=== PATIENT | male | born 1950 | race Caucasian/White ===

== ENCOUNTER → 2020-06-06 08:47 | Outpatient (BNVA) | payer BC, SELFPAY | PROVIDERS: PCP Internal Medicine; Referring Provider Internal Medicine; Visit Provider Urology | DX: Z76.89 Persons encountering health services in other specified circumstances (principal) ==

== ENCOUNTER 2020-06-11 06:07 | Outpatient (REF) | payer BC, SELFPAY ==
[2020-06-11 11:50] LABS: Blood Urea Nitrogen 9 mg/dL (9-16); Estimated Glomerular Filt Rate > 60
== END 2020-06-11 06:08 | disposition home or self-care (01) ==
LOC: HO.HMGCLDS 06:07
PROVIDERS: PCP Internal Medicine; Visit Provider Urology
DX: C61 Malignant neoplasm of prostate (principal); N26.1 Atrophy of kidney (terminal)
CPT/HCPCS: 82565; 84520

== ENCOUNTER → 2020-06-18 09:55 | Outpatient (REF) | payer BC, SELFPAY ==
--- NOTE | 2020-06-18 09:59 | NM_ITS ---
EXAMINATION: NM BONE SCAN OF THE WHOLE BODY CLINICAL INFORMATION: Malignant neoplasm of prostate. COMPARISON: No previous bone scan or radiographs are available for comparison. TECHNIQUE: Multiple gamma scintillation camera images of the whole body were performed 3 hours following the intravenous administration of 28 mCi Tc-99m MDP. FINDINGS: In the head, no significant abnormalities are present. In the thoracic cage and upper extremities, there is mildly increased activity in the glenohumeral articulations of both shoulders. There is mildly increased activity in the right acromioclavicular joint and the bilateral sternoclavicular joints, all likely arthritic. In the spine, there is mildly increased activity in the right side of L3 and bilaterally at the L/L5 level. In the pelvis, no significant abnormalities are present. In the lower extremities, a photopenic defect from a right total hip prosthesis is noted with no abnormal activity adjacent to the prosthesis. Minimally increased activity in the right greater femoral trochanter is present, likely due to a mild lymphadenopathy. There are small mild foci of increased activity present in the medial compartments of both knees. There is markedly increased activity in the left ankle. This is predominantly in the talar bone, but additional abnormality in the proximal left foot more proximally that is likely in the anterior calcaneus is noted. There is moderately increased activity in the left first metatarsophalangeal joint and in a small focus in the distal aspect of the fifth digit of the right foot, and there is mildly increased activity in the right talar bone. No other definite bony abnormalities are noted. The urinary bladder and faint visualization of both kidneys are noted. NM/[place] bone scan whole body IMPRESSION: 1. Very prominent abnormality is present in the left ankle. This is predominantly in the talar bone, as described above and these are nonspecific and may be due to recent fracture, aseptic necrosis, or in the proper clinical setting to an inflammatory lesion. Additional mild abnormalities are present in both feet as described above. Follow-up with plain radiographs of both feet and ankles is recommended to better characterize these abnormalities. 2. A few additional mild nonspecific abnormalities are noted as described above and these are all likely arthritic or traumatic in etiology. None of these abnormalities is strongly suspicious for metastatic disease.
== END ==
LOC: HO.NUCMED 09:55
PROVIDERS: PCP Internal Medicine; Visit Provider Urology
DX: C61 Malignant neoplasm of prostate (principal)
CPT/HCPCS: 78306; A9503

== ENCOUNTER → 2020-07-04 11:27 | Outpatient (BNVA) | payer BC, SELFPAY | PROVIDERS: PCP Internal Medicine; Visit Provider Urology | DX: Z13.89 Encounter for screening for other disorder (principal) ==

== ENCOUNTER → 2020-07-17 10:06 | Outpatient (BNVA) | payer BC, SELFPAY | PROVIDERS: PCP Internal Medicine; Referring Provider Internal Medicine; Visit Provider Urology | DX: C61 Malignant neoplasm of prostate (principal); N40.1 Benign prostatic hyperplasia with lower urinary tract symptoms | CPT/HCPCS: J9217 ==

== ENCOUNTER 2020-10-07 06:33 | Outpatient (REF) | payer BC, SELFPAY ==
[2020-10-02 14:19] VITALS: BMI 22.9
[2020-10-07 07:43] VITALS: BP 138/74; PULSE 73; RESP 16; TEMP 36.8; O2SAT 97
[2020-10-07 07:47] VITALS: BMI 22.9
--- NOTE | 2020-10-07 09:36 | PM.OP ---
Brief Operative Note Date of Service: 10/07/20 Pre-op diagnosis: Prostate cancer Post-op diagnosis: same Procedure: Gold seed implantation Implants: Three gold seeds Surgeon: Kaden Barry MD Anesthesia: local Estimated blood loss (mL): 0 Pathology: none sent Condition: stable Disposition: same day
--- NOTE | 2020-10-07 09:36 | MHC.SHP ---
Pre-Procedural Eval Section A The patient is an INPATIENT: No Changes since office visit: No Cold of Flu in the past 2 weeks, No New Medical Problems, No Changes in Medication and No Patient answered all questions The History & Physical has been completed within 30 days and I have reviewed it.: Yes Section B Chief Complaint: prostate ca Allergies: Allergies Allergy/AdvReac Type Severity Reaction Status Date / Time No Known Allergies Allergy Verified 07/17/20 10:16 [No Known Allergies*] Plan Diagnosis/Plan: Unchanged I have reviewed the history and physical and performed a pertinent physical examination on my patient. No changes have occurred unless specified. Gold seed markers prostate
--- NOTE | 2020-10-07 09:37 | W.PM.OPN ---
Operative Note Operative Note Date of Service: 10/07/20 Narrative: PreOperative Diagnosis: Prostate cancer Post Operative Diagnosis: Prostate cancer Procedure: Transrectal ultrasound gold seed marker placement Surgeon: Dr Kaden Barry Anesthesia: Local Indications for procedure: Gold seed markers Procedure: After informed consent was verified the patient was brought to the procedure room and placed in a supine position. Prior prostate biopsy performed Patient placed in modified left side lithotomy position Antibiotics have been confirm Ultrasound probe placed per rectum. Prostate identified. Prostatic nerve block performed with 10 cc of local anesthetic between the base and apex of the prostate Gold seed markers placed 2 on the right and 1 on the left All seen with good outlines Pathology: none Drains: none
[2020-10-07 09:40] VITALS: BP 124/68; PULSE 76; RESP 16; O2SAT 98
== END 2020-10-07 06:34 | disposition home or self-care (01) ==
LOC: HO.MS 06:33
PROVIDERS: PCP Internal Medicine; Visit Provider Urology
DX: C61 Malignant neoplasm of prostate (principal); I10 Essential (primary) hypertension; Z85.828 Personal history of other malignant neoplasm of skin; F17.210 Nicotine dependence, cigarettes, uncomplicated
CPT/HCPCS: 55700; 55876; 76942; A4648

== ENCOUNTER → 2021-01-07 08:24 | Outpatient (BNVA) | payer BC, SELFPAY | PROVIDERS: PCP Internal Medicine; Visit Provider Urology | DX: C61 Malignant neoplasm of prostate (principal); Z20.822 Contact with and (suspected) exposure to COVID-19 | CPT/HCPCS: 96402; J9217 ==

== ENCOUNTER 2021-01-16 06:16 | Outpatient (REF) | payer BC, SELFPAY ==
[2021-01-16 11:45] LABS: MANUAL DIFF FLAG NO
[2021-01-16 12:10] LABS: Basophils Absolute Auto 0.1 X10*3/uL (0.0-0.2); Basophils Percent Auto 0.8 % (0-2); Eosinophils Absolute Auto 0.3 X10*3/uL (0.0-0.4); Eosinophils Percent Auto 5.6 % (0-4); Hematocrit 44.1 % (42-52); Hemoglobin 14.6 g/dl (14.0-18.0); Imm Gran Abs Auto 0.02 X10*3/uL (0.00-0.03); Imm Gran Pct Auto 0.3 % (0.0-0.4); Lymphocytes Absolute Auto 0.9 X10*3/uL (1.2-4.9); Lymphocytes Percent Auto 15.6 % (20-40); Mean Corpuscular HGB Conc 33.1 g/dl (31.0-36.0); Mean Corpuscular Hemoglobin 32.3 pg (27.0-33.0); Mean Corpuscular Volume 97.6 fL (80-98); Mean Platelet Volume 9.6 fL (9.4-12.4); Monocytes Absolute Auto 0.9 X10*3/uL (0.1-1.2); Monocytes Percent Auto 15.8 % (2-11); Neutrophils Absolute Auto 3.6 X10*3/uL (2.0-8.3); Neutrophils Percent Auto 61.9 % (45-73); Platelet Count 310 X10*3/uL (160-400); Red Blood Count 4.52 X10*6/uL (4.60-5.80); White Blood Count 5.9 X10*3/uL (4.8-10.8)
[2021-01-16 12:41] LABS: PSA,Total (Free>4and<10) 0.33 ng/mL (0.00-4.00)
[2021-01-16 12:54] LABS: Alanine Aminotransferase 15 U/L (0-40); Albumin Level 4.1 g/dL (3.5-5.0); Alkaline Phosphatase 62 U/L (39-117); Anion Gap 13 (12-20); Aspartate Amino Transferase 20 U/L (5-37); Bilirubin Total 0.4 mg/dL (0.0-1.0); Blood Urea Nitrogen 10 mg/dL (9-16); Calcium 8.6 mg/dL (8.4-10.2); Carbon Dioxide 26 mmol/L (22-29); Chloride 102 mmol/L (96-108); Cholesterol 167 mg/dL; Estimated Glomerular Filt Rate > 60; Glucose Fasting 94 mg/dL (60-99); HDL Cholesterol 55 mg/dL; LDL Cholesterol Calculated 92 mg/dl; Potassium 5.3 mmol/L (3.3-5.1); Sodium 136 mmol/L (135-145); Total Protein 7.2 g/dL (6.5-8.0); Triglycerides 103 mg/dL
== END 2021-01-16 06:17 | disposition home or self-care (01) ==
LOC: HO.HMGCLDS 06:16
PROVIDERS: PCP Internal Medicine; Visit Provider Internal Medicine
DX: Z00.00 Encounter for general adult medical examination without abnormal findings (principal); Z12.5 Encounter for screening for malignant neoplasm of prostate; E78.5 Hyperlipidemia, unspecified
CPT/HCPCS: 36415; 80053; 80061; 84153; 85025

== ENCOUNTER 2021-04-01 06:03 | Outpatient (REF) | payer BC, SELFPAY ==
[2021-04-01 12:12] LABS: Prostate Specific Antigen 0.16 ng/mL (<0.05-4.0)
[2021-04-02 08:12] LABS: SARS COV2 IgG Negative (Negative)
[2021-04-08 15:45] LABS: Testosterone, Total 10 ng/dL (250-1100)
== END 2021-04-01 06:04 | disposition home or self-care (01) ==
LOC: HO.HMGCLDS 06:03
PROVIDERS: PCP Internal Medicine; Visit Provider Urology
DX: C61 Malignant neoplasm of prostate (principal); Z01.84 Encounter for antibody response examination; Z12.5 Encounter for screening for malignant neoplasm of prostate
CPT/HCPCS: 36415; 84153; 84403; 86769

== ENCOUNTER → 2021-04-09 08:45 | Outpatient (BNVA) | payer BC, SELFPAY | PROVIDERS: Visit Provider Urology ==

== ENCOUNTER 2021-07-01 06:02 | Outpatient (REF) | payer BC, SELFPAY ==
[2021-07-01 12:36] LABS: Prostate Specific Antigen 0.05 ng/mL (<0.05-4.0)
[2021-07-06 02:35] LABS: Testosterone, Total 11 ng/dL (250-1100)
== END 2021-07-01 06:03 | disposition home or self-care (01) ==
LOC: HO.HMGCLDS 06:02
PROVIDERS: PCP Internal Medicine; Visit Provider Urology
DX: C61 Malignant neoplasm of prostate (principal); N13.8 Other obstructive and reflux uropathy; N40.1 Benign prostatic hyperplasia with lower urinary tract symptoms
CPT/HCPCS: 36415; 84153; 84403

== ENCOUNTER → 2021-07-09 11:27 | Outpatient (BNVA) | payer BC, SELFPAY | PROVIDERS: PCP Internal Medicine; Visit Provider Urology ==

== ENCOUNTER 2021-11-04 06:08 | Outpatient (REF) | payer BC, SELFPAY ==
[2021-11-04 12:27] LABS: Prostate Specific Antigen < 0.05 ng/mL (<0.05-4.0)
[2021-11-08 09:00] LABS: Testosterone, Total 15 ng/dL (250-1100)
== END 2021-11-04 06:09 | disposition home or self-care (01) ==
LOC: HO.HMGCLDS 06:08
PROVIDERS: Visit Provider Urology
DX: C61 Malignant neoplasm of prostate (principal)
CPT/HCPCS: 36415; 84153; 84403

== ENCOUNTER → 2021-11-11 11:26 | Outpatient (BNVA) | payer BC, SELFPAY | PROVIDERS: PCP Internal Medicine; Visit Provider Urology | DX: N40.1 Benign prostatic hyperplasia with lower urinary tract symptoms (principal); N13.8 Other obstructive and reflux uropathy; R33.9 Retention of urine, unspecified; C61 Malignant neoplasm of prostate ==

== ENCOUNTER 2022-01-14 06:18 | Outpatient (REF) | payer BC, SELFPAY ==
[2022-01-14 11:11] LABS: MANUAL DIFF FLAG NO
[2022-01-14 11:37] LABS: Basophils Percent Auto 0.7 % (0-2); Eosinophils Absolute Auto 0.3 X10*3/uL (0.0-0.4); Eosinophils Percent Auto 5.4 % (0-4); Hematocrit 38.9 % (42.0-52.0); Hemoglobin 13.1 g/dl (14.0-18.0); Imm Gran Abs Auto 0.03 X10*3/uL (0.00-0.03); Imm Gran Pct Auto 0.5 % (0.0-0.4); Lymphocytes Absolute Auto 0.9 X10*3/uL (1.2-4.9); Lymphocytes Percent Auto 15.3 % (20-40); Mean Corpuscular HGB Conc 33.7 g/dl (31.0-36.0); Mean Corpuscular Hemoglobin 32.4 pg (27.0-33.0); Mean Corpuscular Volume 96.3 fL (80.0-98.0); Mean Platelet Volume 9.8 fL (9.4-12.4); Monocytes Absolute Auto 0.8 X10*3/uL (0.1-1.2); Monocytes Percent Auto 13.1 % (2-11); Neutrophils Absolute Auto 3.8 x10*3/uL (2.0-8.3); Platelet Count 307 X10*3/uL (160-400); Red Blood Count 4.04 X10*6/uL (4.60-5.80); White Blood Count 5.9 X10*3/uL (4.8-10.8)
[2022-01-14 12:09] LABS: Alanine Aminotransferase 11 U/L (0-40); Albumin Level 3.9 g/dL (3.5-5.0); Alkaline Phosphatase 64 U/L (39-117); Anion Gap 12 (12-20); Aspartate Amino Transferase 16 U/L (5-37); Bilirubin Direct 0.2 mg/dL (0.0-0.5); Bilirubin Total 0.3 mg/dL (0.0-1.0); Blood Urea Nitrogen 17 mg/dL (9-16); Carbon Dioxide 24 mmol/L (22-29); Chloride 105 mmol/L (96-108); Cholesterol 157 mg/dL; Estimated Glomerular Filt Rate > 60; Glucose Fasting 86 mg/dL (60-99); HDL Cholesterol 48 mg/dL; LDL Cholesterol Calculated 99 mg/dl; Potassium 4.8 mmol/L (3.3-5.1); Sodium 136 mmol/L (135-145); Triglycerides 52 mg/dL
== END 2022-01-14 06:19 | disposition home or self-care (01) ==
LOC: HO.HMGCLDS 06:18
PROVIDERS: Visit Provider Internal Medicine
DX: R53.83 Other fatigue (principal); E78.5 Hyperlipidemia, unspecified
CPT/HCPCS: 36415; 80051; 80061; 80076; 82565; 82947; 84520; 85025

== ENCOUNTER 2022-03-03 06:09 | Outpatient (REF) | payer BC, SELFPAY ==
[2022-03-03 11:59] LABS: Prostate Specific Antigen 0.13 ng/mL (<0.05-4.0)
[2022-03-09 12:36] LABS: Testosterone, Total 351 ng/dL (250-1100)
== END 2022-03-03 06:10 | disposition home or self-care (01) ==
LOC: HO.HMGCLDS 06:09
PROVIDERS: Visit Provider Urology
DX: Z12.5 Encounter for screening for malignant neoplasm of prostate (principal); C61 Malignant neoplasm of prostate
CPT/HCPCS: 36415; 84153; 84403

== ENCOUNTER 2022-04-24 09:23 | Day surgery (SDC) | payer MEDICARE, BC, SELFPAY ==
[2022-04-17 13:33] VITALS: BMI 23.3
--- NOTE | 2022-04-23 09:21 | HO.ANESPROP2 ---
Documented by User: Rhonda Doll NP 04/23/22 09:22 HPI - Anesthesia Eval Consult details Narrative: 72yo M for Upper Endoscopy and Colonoscopy H/O DI - required glidescope/3 attempts for 2019 hernia repair PMF Active Problems Active Problems: All Active Problems (Updated 03/11/22 @ 10:59 by Kaden Barry MD) Erectile dysfunction after prostate brachytherapy (Acute) Exposure to COVID-19 virus (Acute) Elevated PSA (Acute) BPH loc w urin obs/LUTS (Acute) Prostate cancer (Acute) Past Medical History Medical History Arthritis BPH loc w urin obs/LUTS Cancer H/O cervical fracture HTN (hypertension) Prostate cancer Smoker Surgical History Surgical History History of right hip replacement Hx of prostate biopsy Hx of right inguinal hernia repair History of Problems with Anesthesia: Yes (h/o of DI) Social History Social History Are you a primary child care centre director to a significant other at home: No Do you presently have visiting nurse or other home services: No Patient Tobacco Use Status: Current everyday Tobacco user Tobacco use type: Cigarette Cigarettes Per Day: 5 Years Smoked: 52 Use of substances other than those prescribed or required for medical reasons: Yes Substance Use Type: Marijuana Substance Use Frequency: Weekly Are you DNR?: No Advance Directives: No Advance Directives Information Provided: Yes Meds Allergies Allergy/AdvReac Type Severity Reaction Status Date / Time No Known Allergies Allergy Verified 04/17/22 13:29 [No Known Allergies*] Home Medications Medication Instructions Recorded Confirmed Last Taken Type lisinopril 10 mg tablet 10 mg PO BID 06/06/20 04/17/22 Unknown History oxaprozin 600 mg tablet 600 mg PO BID 06/06/20 04/17/22 Unknown History atenolol 50 mg tablet 50 mg PO DAILY 04/09/21 04/17/22 Unknown History nifedipine 60 mg tablet,extended 60 mg PO DAILY 07/09/21 04/17/22 Unknown History release finasteride 5 mg tablet 1 tab PO DAILY 04/17/22 04/17/22 Unknown History Exam Exam Date and Time: April 23, 2022920 Height,Weight and Vital Signs: Height 5 ft 10 in Weight 73.936 kg Pertinent Lab Results Pertinent Lab Results: Laboratory Tests 01/14/22 01/14/22 06:36 06:36 WBC 5.9 Hgb 13.1 L Hct 38.9 L Plt Count 307 Sodium 136 Potassium 4.8 Chloride 105 Carbon Dioxide 24 BUN 17 H Creatinine 1.16 Assessment and Plan Assessment Anesthesia Assessment: Chart Reviewed Final Anesthetic Review History of Problems with Anesthesia: Yes (h/o of DI) Documented by User: Katrina Payton MD 04/24/22 10:41 PMF Active Problems Active Problems: All Active Problems (Updated 03/11/22 @ 10:59 by Kaden Barry MD) Erectile dysfunction after prostate brachytherapy (Acute) Exposure to COVID-19 virus (Acute) Elevated PSA (Acute) BPH loc w urin obs/LUTS (Acute) Prostate cancer (Acute) ETOH abuse- 6 beers a day. Last 2 days ago Smoker Past Medical History Medical History Arthritis BPH loc w urin obs/LUTS Cancer H/O cervical fracture HTN (hypertension) Prostate cancer Smoker Family History Family history of problems with anesthesia: No Surgical History Surgical History History of right hip replacement Hx of prostate biopsy Hx of right inguinal hernia repair Social History Social History Are you a primary child care centre director to a significant other at home: No Do you presently have visiting nurse or other home services: No Patient Tobacco Use Status: Current everyday Tobacco user Tobacco use type: Cigarette Cigarettes Per Day: 5 Years Smoked: 52 Use of substances other than those prescribed or required for medical reasons: Yes Substance Use Type: Marijuana Substance Use Frequency: Weekly Are you DNR?: No Advance Directives: No Advance Directives Information Provided: Yes Meds Allergies Allergy/AdvReac Type Severity Reaction Status Date / Time No Known Allergies Allergy Verified 04/17/22 13:29 [No Known Allergies*] Home Medications Medication Instructions Recorded Confirmed Last Taken Type lisinopril 10 mg tablet 10 mg PO BID 06/06/20 04/17/22 Unknown History oxaprozin 600 mg tablet 600 mg PO BID 06/06/20 04/17/22 Unknown History atenolol 50 mg tablet 50 mg PO DAILY 04/09/21 04/17/22 Unknown History nifedipine 60 mg tablet,extended 60 mg PO DAILY 07/09/21 04/17/22 Unknown History release finasteride 5 mg tablet 1 tab PO DAILY 04/17/22 04/17/22 Unknown History Exam Height,Weight and Vital Signs: Height 5 ft 10 in Weight 73.936 kg Vital Signs Temp Pulse Resp BP Pulse Ox O2 Del Method 04/24/22 09:43 97.6 F 70 16 149/75 H 98 Room Air Airway Mallampati Class: III (Small chin) TM Dist: >3cm Neck ROM: Full Denture: Upper Loose/Missing/Broken Teeth: Yes (Poor dentition. Broken teeth) Heart: RRR Lungs: CTAB Assessment and Plan Assessment Anesthesia Assessment: Anesthesia Plan Discussed Final Anesthetic Review Family History of Problems with Anesthesia: No NPO: Yes ASA Class: III Final Preanesthetic Review: No Changes in Pt Med Stat, Meds/Allgs Chart Reviewed, Consent Obtained/Reviewed and Anes Risks/Benef Reviewed Patient Risk: Intermediate Procedure Risk: Low Assessment/Block/Sedation in SS: Assess/Block/Sedation-SS Anesthetic Plan Anesthetic Plan: MAC: Disposition: Standard PACU
[2022-04-24 09:43] VITALS: BP 149/75; PULSE 70; RESP 16; TEMP 36.4; O2SAT 98
[2022-04-24] MEDS: Lactated Ringers 1,000 ML 100 ML IVCONT (09:54)
--- NOTE | 2022-04-24 10:33 | MHC.SHP ---
Pre-Procedural Eval Section A Date of Service: 04/24/22 Section B Chief Complaint: anemia,fecal abnormalities Details of Present Illness: see h&p no changes Relevant Family History (Specify if Yes): No Relevant Social History: None Present Medications: see Short Stay Collaborative assessment Medical History: No relevant PMH History of Previous Operations: No relevant previous surgery Allergies: Allergies Allergy/AdvReac Type Severity Reaction Status Date / Time No Known Allergies Allergy Verified 04/17/22 13:29 [No Known Allergies*] Review of Systems Sugical H&P ROS: Negative: Constitution, Cardiovascular, Respiratory, Neurological, Psychiatric, Hem-Onc, Allergic/Immunologic, Gastrointestinal, Genitourinary, Musculoskeletal, Integumentary, Endocrine and Eyes/Ears/Nose/Throat Exam Surgical H&P Exam: Normal: HEENT, Normal: Heart, Normal: Lungs, Normal: Extremities, Normal: Abdomen, Normal: Skin and Normal: Neurological Plan I have reviewed the history and physical and performed a pertinent physical examination on my patient. No changes have occurred unless specified.
[2022-04-24 11:32] VITALS: BP 87/52; PULSE 66; RESP 18; TEMP 36.3; O2SAT 97
--- NOTE | 2022-04-24 11:36 | P.BOP_ITS ---
Brief Operative Note Date of Service: 04/24/22 Pre-op diagnosis: heme pos stool, anemia Post-op diagnosis: same (duodenitis,colon polyps) Procedure: egd,colon Surgeon: Dimitri Cohen Anesthesia: MAC Was an Instrument Maintenance Supervisor used for this Procedure?: No Estimated blood loss (mL): 5 Pathology: other Condition: stable Disposition: PACU
[2022-04-24 11:47] VITALS: BP 131/80; PULSE 72; RESP 18; TEMP 36.6; O2SAT 98
[2022-04-24 11:55] VITALS: BP 131/80; PULSE 76; RESP 16; TEMP 36.2; O2SAT 98
--- NOTE | 2022-04-25 00:40 | OP_ITS ---
SURGEON: Dimitri Cohen MD INDICATIONS: Anemia and Hemoccult-positive stools. PREOPERATIVE DIAGNOSIS: POSTOPERATIVE DIAGNOSIS: PROCEDURE PERFORMED: ESTIMATED BLOOD LOSS: COMPLICATIONS: ANESTHESIA: ASSISTANTS: SPECIMENS: PROCEDURE: Upper endoscopy with biopsy, colonoscopy to the terminal ileum with snare polypectomy and biopsy on 04/25/22. MEDICATIONS: Monitored anesthesia care. DESCRIPTION OF PROCEDURE: History and Physical performed. The risks and benefits of the procedure were explained to the patient. Informed consent was obtained. The patient was placed in the left lateral decubitus position. The Olympus video gastroscope was introduced into the esophagus, stomach, and duodenum. Examination was performed. The scope was removed. He was repositioned for colonoscopy. Digital rectal exam was performed and was found to be normal. The Olympus pediatric video colonoscope was introduced into the rectum and advanced to the cecum without difficulty. The cecum was identified by transillumination, palpation, and identification of ileocecal valve. Examination was performed. The scope was removed. He tolerated both procedures well and was returned to recovery area in stable condition. FINDINGS: Upper endoscopy: Esophagus: There was some mild esophagitis at the EG junction. 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 Biopsies were obtained from the EG junction. Stomach: Stomach showed linear streaks of erythema, suspicious for gastritis. Biopsies were obtained from the antrum. Duodenum: In the duodenum, there were multiple small erosions consistent with erosive duodenitis. No ulcer was seen. No bleeding was seen. Biopsies were obtained from the second portion of the duodenum. Colonoscopy: The terminal ileum showed a single diverticulum with no bleeding. In the cecum, there was a 1.5 x 2.0 polypoid area involving the appendiceal orifice. This was biopsied. The area was not amenable to snare resection, because of its location at the appendix. The visualized colonic mucosa was within normal limits at 60 cm were 2 less than 10 mm polyps, which were removed with a snare and recovered via suction. In the rectum were multiple telangiectasia consistent with radiation change from prostate radiation therapy. Biopsies were obtained from the rectum. There was moderate diverticulosis involving the sigmoid. The sigmoid was somewhat tortuous. Retroflexed examination showed small internal hemorrhoids. IMPRESSION: 1. Duodenitis. 2. Colon polyps. RECOMMENDATIONS: 1. Follow up biopsy results. 2. Begin omeprazole 20 mg daily for a total of 8 weeks. MD JARROD Duenas/CHAPIN / [id number] DAMARI
== END 2022-04-24 12:03 | disposition home or self-care (01) ==
PROVIDERS: Visit Provider Internal Medicine Gastroenterology
PROC: (CPT 45385; principal; 2022-04-24 10:40)
DX: R19.5 Other fecal abnormalities (principal); D64.9 Anemia, unspecified; D12.0 Benign neoplasm of cecum; D12.4 Benign neoplasm of descending colon; K57.30 Diverticulosis of large intestine without perforation or abscess without bleeding; K64.8 Other hemorrhoids; C61 Malignant neoplasm of prostate; K62.7 Radiation proctitis; K29.70 Gastritis, unspecified, without bleeding; K29.80 Duodenitis without bleeding; K20.80 Other esophagitis without bleeding; I10 Essential (primary) hypertension; Z79.899 Other long term (current) drug therapy; F17.210 Nicotine dependence, cigarettes, uncomplicated; F12.90 Cannabis use, unspecified, uncomplicated
CPT/HCPCS: 45385; 45380; 43239; 88305; 88342; J2370; J3010

== ENCOUNTER 2022-06-30 06:00 | Outpatient (REF) | payer MEDICARE, BC, SELFPAY ==
[2022-06-30 12:14] LABS: Prostate Specific Antigen 0.19 ng/mL (<0.05-4.0)
== END 2022-06-30 06:01 | disposition home or self-care (01) ==
LOC: HO.HMGCLDS 06:00
PROVIDERS: PCP Internal Medicine; Visit Provider Urology
DX: Z12.5 Encounter for screening for malignant neoplasm of prostate (principal); C61 Malignant neoplasm of prostate
CPT/HCPCS: 36415; 84153

== ENCOUNTER 2022-09-18 07:27 | Inpatient (IN) | payer MEDICARE, BC, SELFPAY ==
--- NOTE | 2022-09-03 | ECG_ITS ---
Test Reason : preop Blood Pressure : / mmHG Vent. Rate : 075 BPM Atrial Rate : 075 BPM P-R Int : 150 ms QRS Dur : 082 ms QT Int : 390 ms P-R-T Axes : 063 068 055 degrees QTc Int : 435 ms Normal sinus rhythm Normal ECG No previous ECGs available Referred By: Rhonda Doll Electronically Signed By:JACEK PALAFOX MD
[2022-09-03 11:52] VITALS: BP 168/86; PULSE 83; RESP 20; O2SAT 96; BMI 22.9
[2022-09-03 13:20] LABS: Hemoglobin 14.5 g/dl (14.0-18.0); Mean Corpuscular HGB Conc 33.7 g/dl (31.0-36.0); Mean Corpuscular Hemoglobin 31.5 pg (27.0-33.0); Mean Corpuscular Volume 93.5 fL (80.0-98.0); Mean Platelet Volume 9.4 fL (9.4-12.4); Platelet Count 343 X10*3/uL (160-400); Red Cell Distribution Width 13.5 % (11.0-16.0); White Blood Count 8.9 X10*3/uL (4.8-10.8)
[2022-09-03 13:42] LABS: Anion Gap 13 (12-20); Blood Urea Nitrogen 12 mg/dL (9-16); Calcium 8.7 mg/dL (8.4-10.2); Carbon Dioxide 25 mmol/L (22-29); Chloride 102 mmol/L (96-108); Creatinine Clr Calc Pharmacy 75.8; Estimated Glomerular Filt Rate > 60; Glucose Random 100 mg/dL (60-115); Potassium 4.6 mmol/L (3.3-5.1); Sodium 135 mmol/L (135-145)
[2022-09-18] VITALS (22 sets, daily range): BP systolic 134–178; BP diastolic 70–97; PULSE 67–98; RESP 12–18; TEMP 36.5–37.6; O2SAT 96–100
--- NOTE | 2022-09-18 07:25 | P.CONAN_ITS ---
[facility] Active Problems Active Problems: All Active Problems (Updated 09/03/22 @ 11:54 by Carol Bacon RN) Elevated PSA (Acute) Exposure to COVID-19 virus (Acute) Erectile dysfunction after prostate brachytherapy (Acute) Cecal polyp (Acute) BPH loc w urin obs/LUTS (Acute) Prostate cancer (Acute) Past Medical History Medical History Arthritis BPH loc w urin obs/LUTS Cecal polyp H/O cervical fracture History of COVID-19 HTN (hypertension) Prostate cancer Skin cancer Smoker Functional capacity: independent ambulation Family History Family history of problems with anesthesia: No Surgical History Surgical History H/O colonoscopy History of esophagogastroduodenoscopy (EGD) History of right hip replacement Hx of eye surgery Hx of left inguinal hernia repair Hx of prostate biopsy Hx of right inguinal hernia repair Hx of tonsillectomy History of Problems with Anesthesia: Yes (h/o of DI) Social History Social History Are you a primary career placement specialist to a significant other at home: No Do you presently have visiting nurse or other home services: No Patient Tobacco Use Status: Current everyday Tobacco user Tobacco use type: Cigarette Cigarettes Per Day: 6 Years Smoked: 20 Smoked in Last 30 Days: Yes Patient Interested in Nicotine Replacement: No Patient Given Instructions on How to Stop Smoking: Yes Date Education Initiated: 09/03/22 Second Hand Smoke Exposure: No Use of substances other than those prescribed or required for medical reasons: Yes Substance Use Type: Marijuana Substance Use Frequency: Daily Have you been hit, kicked, punched, or otherwise hurt by someone within the past year? If so, by whom?: No Are you DNR?: No Advance Directives Information Provided: Yes (brochure given) Advance Directives on File: No Recently lost weight without trying: No Eating poorly because of decreased appetite: No Nutrition Risks: No Nutritional Risk Poor oral hygiene: No (upper & lower chipped/broken teeth) Meds Allergies Allergy/AdvReac Type Severity Reaction Status Date / Time No Known Allergies Allergy Verified 09/18/22 08:28 [No Known Allergies*] Home Medications Medication Instructions Recorded Confirmed Last Taken Type lisinopril 10 mg tablet 10 mg PO BID 06/06/20 09/03/22 Unknown History oxaprozin 600 mg tablet 600 mg PO BEDTIME 06/06/20 09/03/22 Unknown History atenolol 50 mg tablet 50 mg PO QAM 04/09/21 09/03/22 09/18/22 History nifedipine 60 mg tablet,extended 60 mg PO QAM 07/09/21 09/03/22 09/18/22 History release Exam Exam Date and Time: September 18, 2022 0725 Height,Weight and Vital Signs: Height 5 ft 10 in Weight 72.575 kg Last Vital Signs Pulse 83 09/03/22 11:52 Resp 20 09/03/22 11:52 BP 168/86 H 09/03/22 11:52 Pulse Ox 96 09/03/22 11:52 O2 Del Method 09/03/22 11:52 Pertinent Lab Results Pertinent Lab Results: Laboratory Tests 09/03/22 09/03/22 09/03/22 12:40 12:44 12:44 WBC 8.9 RBC 4.60 Hgb 14.5 Hct 43.0 MCV 93.5 MCH 31.5 MCHC 33.7 RDW 13.5 Plt Count 343 MPV 9.4 Absolute Nucleated RBC 0.000 Nucleated RBC % (auto) 0.0 Sodium 135 Potassium 4.6 Chloride 102 Carbon Dioxide 25 Anion Gap 13 BUN 12 Creatinine 0.93 Estim Creat Clear Calc 75.8 Estimated GFR > 60 Random Glucose 100 Calcium 8.7 Blood Type A Positive Antibody Screen NEGATIVE Airway Mallampati Class: II TM Dist: >3cm Neck ROM: Full Heart: RRR Lungs: CTA Assessment and Plan Final Anesthetic Review Family History of Problems with Anesthesia: No History of Problems with Anesthesia: Yes (h/o of DI) NPO: Yes ASA Class: II Final Preanesthetic Review: Meds/Allgs Chart Reviewed and Consent Obtained/Reviewed Patient Risk: Intermediate Procedure Risk: Low Anesthetic Plan Anesthetic Plan: GA Disposition: Standard PACU
[2022-09-18] MEDS: Lactated Ringers 1,000 ML 50 ML IVCONT (07:54)
[2022-09-18 08:02] LABS: COVID-19 Test Negative (Negative); IDNOW Serial# BCCEAD1C
--- NOTE | 2022-09-18 08:25 | MHC.SHP ---
Pre-Procedural Eval Section A Date of Service: 09/18/22 Section B Chief Complaint: Cecal Polyp Details of Present Illness: Has cecal polyp, tubular adenoma on biopsy at the appendiceal orifice, could not be resected by the integrated marketing specialist endoscopically Relevant Family History (Specify if Yes): No Relevant Social History: None Present Medications: see Short Stay Collaborative assessment Medical History: Significant History (BPH, history of prostate cancer) Allergies: Allergies Allergy/AdvReac Type Severity Reaction Status Date / Time No Known Allergies Allergy Verified 08/03/22 09:20 [No Known Allergies*] Review of Systems Sugical H&P ROS: Negative: Constitution, Cardiovascular, Respiratory, Neurological, Psychiatric, Hem-Onc, Allergic/Immunologic, Gastrointestinal, Genitourinary, Musculoskeletal, Integumentary, Endocrine and Eyes/Ears/Nose/Throat Exam Surgical H&P Exam: Normal: HEENT, Normal: Heart, Normal: Lungs, Normal: Extremities, Normal: Abdomen, Normal: Skin and Normal: Neurological Plan Diagnosis/Plan: Unchanged I have reviewed the history and physical and performed a pertinent physical examination on my patient. No changes have occurred unless specified. Time Spent With Patient Time: Total time managing care of this patient today ____ minutes.
--- NOTE | 2022-09-18 08:26 | PC.NURSE ---
2 Iv attempts by author. insertion of IV by lissy cervantes rn
--- NOTE | 2022-09-18 08:29 | PHA.MEDREC ---
Pharmacy Consult ? Medication Reconciliation RN has completed the medication reconciliation, pharmacy reviewed
--- NOTE | 2022-09-18 10:44 | W.PM.OPN ---
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 Because of leak a vargas, the client sales and service officer had felt that this could not be resected endoscopically. He was therefore referred to me for resection. He understood the technique of right colon resection. He was aware of the risks, benefits, and alternatives. He was brought to the operating room. He was placed supine under general anesthesia via endotracheal tube. A Molina catheter was inserted. The abdomen was prepped and draped in the usual sterile fashion. A surgical time-out was done. The patient received Cefotan 2 g IV preoperatively I made a short 6.5 cm incision in the midline at level of the umbilicus using blade 15 and this was carried down through the full-thickness of the skin and subcutaneous fat. The fascia was incised. The peritoneum was then entered. I lengthened the fascial incision to optimize the skin incision. I positioned the Chintan wound retractor and attached the GelPort. We insufflated through a port in the GelPort to a pressure of 15 mm hg. I placed the 10 mm 30 degree scope through this port. With laparoscopic visualization I inserted a 5/12 mm port in the epigastric area near the xiphoid. I removed the insufflating port from the GelPort and placed the mass through epigastric port. I placed another 5 mm port in the left upper quadrant. The patient was placed in a head down and [id number] position. With laparoscopic visualization through the epigastric port, I proceeded to reflect the bowel loops away from the right side. This allowed us to visualize the cecum and right colon well. I mobilized the right colon starting from the cecum by dividing all the ligamentous attachments using the LigaSure. This was done along the white line of Toldt. I mobilized the hepatic flexure by dividing the hepatocolic ligamentous attachments. The patient was placed in head up position while doing this. I then completed mobilization of the cecum by dividing the rest of the ligamentous attachments along the terminal ileum and the appendix. Once I felt adequate mobilization of the right colon been achieved, I removed the GelPort. I brought out the distal ileum, the right colon through the small incision. I could not feel the polyp itself. I then proceeded to choose my point of dissection in the terminal ileum as well as the right colon near the hepatic flexure. I created a mesenteric window about 10 cm from the ileocecal valve. I divided this distal ileum with a HARLEY 60 stapler through this defect. I chose my point of transection as well in the hepatic flexure. Again I created a mesenteric defect on this area and a GI 60 mm stapler to transect this. I then used the LigaSure to divide the attached mesentery. I proceeded with division of the mesentery from proximal and distal in and alternating fashion until I reached the ileocolic pedicle. I thinned out the the ileocolic pedicle to define this. I was able to separate the ileocolic vessels. I clamped these individually. I divided these between clamps using scissors and 2-0 doubly ligated using Dexon 2-0 ties. The specimen was then sent for immediate gross exam with the pathologist. I then repaired to do the anastomosis. I lined up both the proximal and distal stumps. I excise the apex of each staple line. Once the anti mesenteric border of each stump were aligned, I inserted each arm of the HARLEY 60 mm stapler. I locked this in place. I made sure that there were no bowel loops or mesentery trapped between the staplers and this was fired. I completed the anastomosis by closing the enterotomy using a TA 60 mm stapler. I reinforced the side to side anastomotic staple line with seromuscular Dexon 3-0 interrupted sutures. There was barely any mesenteric defect remaining the transected mesentery so I did not place any sutures on this. I read the small bowel starting from this area all the way to the ligament of Treitz and there were no pathology or injury seen. I examined the anastomosis. This appeared nonischemic and well vascularized and without tension. There was no evidence of any leak and the entire anastomosis appeared intact. There was note of a little bleeder from 1 area of the staple line which I controlled with a [id number] Dexon 3-0 stitch. Once hemostasis was confirmed, I proceeded to then irrigate this area little bit. I replaced all the bowel loops back into the peritoneal cavity. There was no twisting seen. I positioned the omentum inferiorly. I closed the fascia with a running Maxon 1 stitch. I was able to laparoscopically inspecte the fascial closure and this appeared well closed without any bowel caught. Final laparoscopic examination of the peritoneum the done did not reveal any bleeding nor any bowel injury. I desufflated the port sites. I removed all ports. Skin closure was then done with skin susana. All incisions were infiltrated with Marcaine 0.5% for postop HARLEY. The procedure was then completed The patient tolerated procedure well. There were no immediate complications. Initial and final counts of sponges and instruments were correct. Estimated blood loss was about 25 cc. The patient was extubated without difficulty and transferred to the recovery room with stable vital signs. I received a call from the coding technician at the end of the procedure confirming the presence of an adenomatous lesion in the appendiceal orifice.
[2022-09-18] MEDS: fentaNYL citrate/PF 100 MCG/2 ML VIAL 25 MCG IVPUSH ×2 (11:10→11:29)
[2022-09-18] MEDS: Acetaminophen 1,000 MG/100 ML PIGGYBACK 400 MG IV ×3 (11:12→23:20)
[2022-09-18] MEDS: HYDROmorphone HCl 0.5 MG/0.5 ML SYRINGE 0.25 MG IVPUSH (12:30)
--- NOTE | 2022-09-18 14:20 | PM.EVENT ---
Event Note Date of Service: 09/18/22 Event Note: Seen postop Underwent right colon resection for an adenoma on the appendiceal orifice Seems to have adequate pain control Abdomen soft Stable vital signs Good urine output On clear liquids Pain management Clinically doing well postop Time Spent With Patient Time: Total time managing care of this patient today ____ minutes.
[2022-09-18] MEDS: atenoloL 50 MG TABLET PO (14:30)
[2022-09-18] MEDS: Lactated Ringers 1,000 ML 80 ML IVCONT (14:31)
[2022-09-18] MEDS: 0.9 % Sodium Chloride Flush 3 ML SYRINGE IVFLUSH (14:38)
[2022-09-18] MEDS: NIFEdipine ER 60 MG TAB.ER.24 PO (16:22)
[2022-09-18] MEDS: lisinopriL 10 MG TABLET PO (20:06)
[2022-09-18] MEDS: Morphine Sulfate 4 MG/ML CARTRIDGE IVPUSH (20:06)
[2022-09-19 02:02] VITALS: BP 191/96; PULSE 85; RESP 18; TEMP 36.6; O2SAT 97
[2022-09-19] MEDS: Morphine Sulfate 4 MG/ML CARTRIDGE IVPUSH ×3 (02:14→22:55)
[2022-09-19] MEDS: Lactated Ringers 1,000 ML 80 ML IVCONT ×2 (02:17→14:20)
[2022-09-19] MEDS: Acetaminophen 1,000 MG/100 ML PIGGYBACK 400 MG IV ×4 (05:38→22:51)
[2022-09-19] MEDS: ondansetron HCL 4 MG/2 ML VIAL IVPUSH ×2 (05:43→20:38)
[2022-09-19 08:00] VITALS: BP 187/98; PULSE 81; RESP 18; TEMP 37; O2SAT 97
--- NOTE | 2022-09-19 10:08 | P.PNGS_ITS ---
Subjective Subjective Date of Service: 09/19/22 Patient reports: feels better, still having pain and no flatus Interval history: The patient is seen in coverage for Dr. Hill. The patient is postop day 1 from right hemicolectomy for a large polyp of the cecum. Path is currently pending Patient denies any flatus, vomiting but did receive some anti nausea medicine. He is interested in getting out of bed to chair or walking. He is anxious to have his Molina catheter removed. He otherwise denies chest pain, difficulty breathing, severe shortness of breath or localizing neurologic symptoms Physical Exam 2 Vital Signs: Vital Signs: Last Vital Signs Temp 98.6 F 09/19/22 08:00 Pulse 81 09/19/22 08:00 Resp 18 09/19/22 08:00 BP 187/98 H 09/19/22 08:00 Pulse Ox 97 09/19/22 08:00 O2 Del Method 09/19/22 08:00 O2 Flow Rate 2 09/19/22 02:02 BMI result Body Mass Index 22.9 On exam he is nontoxic Sclera anicteric He is in no respiratory distress Abdomen is a little bloated but his dressings are clean dry and intact. Appropriate incisional tenderness is present with no peritoneal sign Objective Data Active Medications Atenolol (Atenolol 50 Mg Tablet) 50 mg PO DAILY [facility]; Protocol Last Admin: 09/18/22 14:30 Dose: 50 mg Documented By: LORI Fentanyl (Fentanyl Citrate/Pf 100 Mcg/2 Ml Vial) 25 mcg IVPUSH Q5M PRN; Protocol PRN Reason: Pain, Moderate (Pain Scale 4-6 Last Admin: 09/18/22 11:29 Dose: 25 mcg Documented By: ROBYN Heparin Sodium (Porcine) (Heparin Sodium,Porcine 5,000 Unit/Ml Vial) 5,000 unit SUBCUT Q8H [facility], [facility]1983 Hydromorphone HCl (Hydromorphone Hcl 0.5 Mg/0.5 Ml Syringe) 0.25 mg IVPUSH Q5M PRN; Protocol PRN Reason: Pain, Severe (Pain Scale 7-10) Last Admin: 09/18/22 12:30 Dose: 0.25 mg Documented By: ROBYN Lactated Ringer's (Lr) 1,000 mls @ 80 mls/hr IVCONT .[id number] [facility], [facility] Last Admin: 09/19/22 02:17 Dose: 80 mls/hr Documented By: DARRON Acetaminophen (Ofirmev) 1,000 mg in 100 mls @ 400 mls/hr IV Q6H [facility] Last Infusion: 09/19/22 06:02 Dose: 0 mls/hr Documented By: DARRON Lisinopril (Lisinopril 10 Mg Tablet) 10 mg PO BID [facility]; Protocol Last Admin: 09/18/22 20:06 Dose: 10 mg Documented By: DARRON Morphine Sulfate (Morphine Sulfate 4 Mg/Ml Cartridge) 4 mg IVPUSH Q4H PRN; Protocol PRN Reason: Pain, Severe (Pain Scale 7-10) Last Admin: 09/19/22 02:14 Dose: 4 mg Documented By: DARRON Nifedipine (Nifedipine Er 60 Mg Tab.Er.24) 60 mg PO DAILY [facility] Last Admin: 09/18/22 16:22 Dose: 60 mg Documented By: LORI Non-Formulary Medication (Oxaprozin) 600 mg PO BEDTIME [facility] Oxycodone HCl (Oxycodone Hcl Immed Release 5 Mg Tablet) 5 mg PO Q4H PRN PRN Reason: Pain, Moderate (Pain Scale 4-6 Oxycodone HCl (Oxycodone Hcl Immed Release 5 Mg Tablet) 10 mg PO Q4H PRN PRN Reason: Pain, Severe (Pain Scale 7-10) Sodium Chloride (0.9 % Sodium Chloride Flush 3 Ml Syringe) 3 ml IVFLUSH QSHIFT [facility] Last Admin: 09/18/22 14:38 Dose: 3 ml Documented By: LORI Labs 09/03/22 12:44 09/03/22 12:44 Procedures Date of Service Date of Service: 09/19/22 Progress Note: A&P Assessment and plan (1) Cecal polyp: Status: Acute Assessment and Plan: Out of bed to chair and ambulate. If the patient seems to be moving around enough, it is okay to remove his Molina catheter today. The inherent risk of urinary retention and need to replace the Molina if he is having voiding difficulty given his history of prostate cancer was discussed and apparently understood. If the patient is having mobility difficulties, leave the Molina in will reassess tomorrow. Check labs tomorrow. Await bowel function. Continue IV fluid and present diet. (2) BPH loc w urin obs/LUTS: Status: Acute Time Spent With Patient Time: Total time managing care of this patient today ____ minutes. Quality Stroke Does the patient have a stroke diagnosis?: No VTE Prior VTE?: No VTE Risk Level:: Medical - moderate - high VTE Device Contraindication: N/A - Device Ordered VTE Drug Contraindication: N/A - Med Ordered
--- NOTE | 2022-09-19 10:56 | P.CONHOSP_ITS ---
History of Present Illness Data of Consult Service Date: 09/19/22 Requesting physician: Cornelius Treviño Primary Care Provider: Mikel Urias MD HPI Reason for consult: hyptertension 72 year old male with history of htn, cecal polyp, BPH, h/o prostate cancer with gold seed implant and ERBT, who is a current 6 cigarette per day smoker, admitted to general surgery for hand assisted laparoscopic right colon resection for management of tubular adenoma pod 1 with consult placed to medicine for management of hypertension and medical management. The patient reports feeling well, pain is well controlled. He states he did just have a small amount of apple juice with breakfast and now has acid reflux. He is reporting intermittent chills but is afebrile. Vitals have been stable. No ligh theadedness, chest pain, shortness of breath, nausea, vomiting. Review of Systems Review of Systems: Yes all other systems are reviewed and are negative [facility] Medical History Arthritis BPH loc w urin obs/LUTS Cecal polyp H/O cervical fracture History of COVID-19 HTN (hypertension) Prostate cancer Skin cancer Smoker Functional capacity: independent ambulation Surgical History H/O colonoscopy History of esophagogastroduodenoscopy (EGD) History of right hip replacement Hx of eye surgery Hx of left inguinal hernia repair Hx of prostate biopsy Hx of right inguinal hernia repair Hx of tonsillectomy Social History Are you a primary emergency care tech to a significant other at home: No Do you presently have visiting nurse or other home services: No Patient Tobacco Use Status: Current everyday Tobacco user Tobacco use type: Cigarette Cigarettes Per Day: 6 Years Smoked: 20 Smoked in Last 30 Days: Yes Patient Interested in Nicotine Replacement: No Patient Given Instructions on How to Stop Smoking: Yes Date Education Initiated: 09/03/22 Second Hand Smoke Exposure: No Use of substances other than those prescribed or required for medical reasons: Yes Substance Use Type: Marijuana Substance Use Frequency: Daily Currently Displaying Signs/Symptoms of Drug Intoxication Withdrawal: No Have you been hit, kicked, punched, or otherwise hurt by someone within the past year? If so, by whom?: No Are you DNR?: No Advance Directives Information Provided: Yes (brochure given) Advance Directives on File: No Recently lost weight without trying: No Eating poorly because of decreased appetite: No Nutrition Risks: No Nutritional Risk Poor oral hygiene: No (upper & lower chipped/broken teeth) Meds Allergies Allergy/AdvReac Type Severity Reaction Status Date / Time No Known Allergies Allergy Verified 09/18/22 08:28 [No Known Allergies*] Active Medications: Current Medications Atenolol (Atenolol 50 Mg Tablet) 50 mg PO DAILY [facility]; Protocol Last Admin: 09/18/22 14:30 Dose: 50 mg Fentanyl (Fentanyl Citrate/Pf 100 Mcg/2 Ml Vial) 25 mcg IVPUSH Q5M PRN; Protocol PRN Reason: Pain, Moderate (Pain Scale 4-6 Last Admin: 09/18/22 11:29 Dose: 25 mcg Heparin Sodium (Porcine) (Heparin Sodium,Porcine 5,000 Unit/Ml Vial) 5,000 unit SUBCUT Q8H [facility] Hydromorphone HCl (Hydromorphone Hcl 0.5 Mg/0.5 Ml Syringe) 0.25 mg IVPUSH Q5M PRN; Protocol PRN Reason: Pain, Severe (Pain Scale 7-10) Last Admin: 09/18/22 12:30 Dose: 0.25 mg Lactated Ringer's (Lr) 1,000 mls @ 80 mls/hr IVCONT .[id number] [facility] Last Admin: 09/19/22 02:17 Dose: 80 mls/hr Acetaminophen (Ofirmev) 1,000 mg in 100 mls @ 400 mls/hr IV Q6H [facility] Last Infusion: 09/19/22 06:02 Dose: Infused Lisinopril (Lisinopril 10 Mg Tablet) 10 mg PO BID [facility]; Protocol Last Admin: 09/18/22 20:06 Dose: 10 mg Morphine Sulfate (Morphine Sulfate 4 Mg/Ml Cartridge) 4 mg IVPUSH Q4H PRN; Protocol PRN Reason: Pain, Severe (Pain Scale 7-10) Last Admin: 09/19/22 02:14 Dose: 4 mg Nifedipine (Nifedipine Er 60 Mg Tab.Er.24) 60 mg PO DAILY [facility] Last Admin: 09/18/22 16:22 Dose: 60 mg Non-Formulary Medication (Oxaprozin) 600 mg PO BEDTIME [facility] Oxycodone HCl (Oxycodone Hcl Immed Release 5 Mg Tablet) 5 mg PO Q4H PRN PRN Reason: Pain, Moderate (Pain Scale 4-6 Oxycodone HCl (Oxycodone Hcl Immed Release 5 Mg Tablet) 10 mg PO Q4H PRN PRN Reason: Pain, Severe (Pain Scale 7-10) Sodium Chloride (0.9 % Sodium Chloride Flush 3 Ml Syringe) 3 ml IVFLUSH QSHIFT [facility] Last Admin: 09/19/22 07:32 Dose: Not Given Home Medications Medication Instructions Recorded Confirmed Last Taken Type lisinopril 10 mg tablet 10 mg PO BID 06/06/20 09/03/22 Unknown History oxaprozin 600 mg tablet 600 mg PO BEDTIME 06/06/20 09/03/22 Unknown History atenolol 50 mg tablet 50 mg PO QAM 04/09/21 09/03/22 09/18/22 History nifedipine 60 mg tablet,extended 60 mg PO QAM 07/09/21 09/03/22 09/18/22 History release Physical Exam Vital Signs and Narrative: Vital Signs: Last Vital Signs Temp 98.6 F 09/19/22 08:00 Pulse 81 09/19/22 08:00 Resp 18 09/19/22 08:00 BP 187/98 H 09/19/22 08:00 Pulse Ox 97 09/19/22 08:00 O2 Del Method 09/19/22 08:00 O2 Flow Rate 2 09/19/22 02:02 BMI result Body Mass Index 22.9 Constitutional - Awake and Alert, No apparent distress Eyes - PERRLA, EOMI Cardiovascular - S1S2, RRR, No edema Respiratory - Normal lung expansion, Normal respiratory effort, No respiratory distress, CTA bilaterally Gastrointestinal - NT / ND; +BS; No rebound or guarding. MIdline postoperative bandage in place which is dry and without drainage Extremities - no calf tenderness bilaterally, no swelling Skin - Warm/Dry Neurological - Alert & oriented x3 Psychological - Appropriate affect Results Labs 09/03/22 12:44 09/03/22 12:44 Assessment and Plan (1) Cecal polyp: Status: Acute Plan 72 year old male with history of htn, cecal polyp, BPH, h/o prostate cancer with gold seed implant and ERBT, who is a current 6 cigarette per day smoker, admitted to general surgery for hand assisted laparoscopic right colon resection for management of tubular adenoma pod 1 with consult placed to medicine for management of hypertension and medical management. # cecal polyp/tubular adenoma s/p hand assisted laparoscopic right-sided hemicolectomy -pod 1 -plan pain management per General surgery -Reporting intermittent chills, no rigors Pt afebrile #HTN- uncontrolled -Resume lisinopril, nifedipine, atenolol -BP 207/102 now. Give 10mg IV labetolol -monitor BP # Heartburn -patient with heartburn following apple juice consumption -1500 mg calcium carbonate ordered -However, also describes an epigastric pressure. No CP, lightheadedness, sob, diaphoresis, n/v. Will rule out ACS. Risk factors- age, post-op, smoker -Given 325mg asa (discussed with gen surg). EKG, trops ordered -will reassess. Adjust plan as indicated # BPH, history of prostate cancer -continue oxaprozin #Cigarette smoker -currently smoking 6 cigarettes daily -cessation, -necrotic gum p.r.n. DVT prophylaxis and dispo per surgery Time Spent With Patient Time: Total time managing care of this patient today ____ minutes.
[2022-09-19] MEDS: lisinopriL 10 MG TABLET PO (10:59)
[2022-09-19 11:00] VITALS: BP 148/87
[2022-09-19] MEDS: NIFEdipine ER 60 MG TAB.ER.24 PO (11:00)
[2022-09-19] MEDS: Heparin Sodium,Porcine 5,000 UNIT/ML VIAL 5000 UNIT SUBCUT ×2 (11:00→18:27)
[2022-09-19] MEDS: atenoloL 50 MG TABLET PO (11:00)
[2022-09-19] MEDS: Calcium Carbonate 750 MG TAB.CHEW 1500 MG PO (11:17)
[2022-09-19] MEDS: Aspirin 325 MG TABLET PO (11:45)
[2022-09-19] MEDS: Labetalol HCL 100 MG/20 ML VIAL 10 MG IVPUSH (11:45)
--- NOTE | 2022-09-19 15:47 | MHC.CM.PN ---
PT REPORTS HE LIVES AT HOME WITH HIS AND IS INDEPENDENT WITH CARE HE HAS NO SERVICES AND NO DME HE COMPLETED A HCP TODAY NAMING HIS HIS AGENT HE SAYS HE IS COVID VAX PCP: TYRELL MONTES - VERIFIED [facility]MM DELIVERED CURRENT DC PLAN, HOME NO SERVICES TO TRANSPORT
--- NOTE | 2022-09-19 15:51 | HO.POSTANES ---
Post Anesthesia Evaluation Post Anesthesia Evaluation Vital Signs: Vital Signs Temp Pulse Resp BP Pulse Ox O2 Del Method 09/19/22 11:00 148/87 H 09/19/22 08:00 98.6 F 81 18 187/98 H 97 Room Air Anesthesia: General Endotracheal-GETA Mental Status: Awake Pain Control: Satisfactory Nausea/Vomiting: None Hydration: Adequate Anesthesia-Related Issues: No Anes. Related Issues
[2022-09-19 16:00] VITALS: BP 162/98; PULSE 80; RESP 16; TEMP 36.5; O2SAT 95
[2022-09-19] MEDS: Calcium Carbonate 750 MG TAB.CHEW PO (18:27)
[2022-09-19 20:00] VITALS: BP 162/85; PULSE 77; RESP 16; TEMP 36.6; O2SAT 93
[2022-09-19] MEDS: lisinopriL 20 MG TABLET PO (21:34)
[2022-09-20] MEDS: Heparin Sodium,Porcine 5,000 UNIT/ML VIAL 5000 UNIT SUBCUT ×3 (02:58→17:07)
[2022-09-20] MEDS: Lactated Ringers 1,000 ML 80 ML IVCONT (02:59)
[2022-09-20 04:00] VITALS: BP 156/79; PULSE 84; RESP 20; TEMP 36.8; O2SAT 95
[2022-09-20] MEDS: Acetaminophen 1,000 MG/100 ML PIGGYBACK 400 MG IV ×4 (05:11→22:54)
[2022-09-20 07:28] LABS: MANUAL DIFF FLAG NO
[2022-09-20 07:44] LABS: Basophils Percent Auto 0.2 % (0-2); Eosinophils Percent Auto 0.1 % (0-4); Hematocrit 31.8 % (42.0-52.0); Hemoglobin 11.1 g/dl (14.0-18.0); Imm Gran Pct Auto 0.6 % (0.0-0.4); Lymphocytes Absolute Auto 0.6 X10*3/uL (1.2-4.9); Lymphocytes Percent Auto 3.8 % (20-40); Mean Corpuscular HGB Conc 34.9 g/dl (31.0-36.0); Mean Corpuscular Hemoglobin 32.3 pg (27.0-33.0); Mean Corpuscular Volume 92.4 fL (80.0-98.0); Monocytes Absolute Auto 1.3 X10*3/uL (0.1-1.2); Monocytes Percent Auto 7.7 % (2-11); Neutrophils Absolute Auto 14.7 x10*3/uL (2.0-8.3); Neutrophils Percent Auto 87.6 % (45-73); Platelet Count 345 X10*3/uL (160-400); Red Blood Count 3.44 X10*6/uL (4.60-5.80); Red Cell Distribution Width 12.8 % (11.0-16.0); White Blood Count 16.8 X10*3/uL (4.8-10.8)
[2022-09-20 08:00] VITALS: BP 167/88; PULSE 85; RESP 19; TEMP 36.6; O2SAT 92
[2022-09-20 08:40] LABS: Anion Gap 16 (12-20); Blood Urea Nitrogen 22 mg/dL (9-16); Calcium 8.6 mg/dL (8.4-10.2); Carbon Dioxide 26 mmol/L (22-29); Chloride 95 mmol/L (96-108); Creatinine Clr Calc Pharmacy 88.1; Estimated Glomerular Filt Rate > 60; Glucose Random 135 mg/dL (60-115); Potassium 4.3 mmol/L (3.3-5.1); Sodium 133 mmol/L (135-145)
[2022-09-20] MEDS: Omeprazole 20 MG CAPSULE.DR PO (09:01)
[2022-09-20] MEDS: atenoloL 50 MG TABLET PO (09:01)
[2022-09-20] MEDS: NIFEdipine ER 60 MG TAB.ER.24 PO (09:01)
[2022-09-20] MEDS: lisinopriL 20 MG TABLET PO ×2 (09:02→20:09)
[2022-09-20] MEDS: Docusate Sodium 100 MG CAPSULE PO ×2 (09:45→17:07)
--- NOTE | 2022-09-20 10:38 | HO.PM.IMPN ---
Subjective Subjective Date of Service: 09/20/22 Interval History: Seen in follow up right sided hemicolectomy Interval history: Reporting intermittent heartburn improved with tums. Tolerating PO. No other complaints. Review of Systems Review of Systems: Yes all other systems are reviewed and are negative Physical Exam Vital Signs: Vital Signs: Last Vital Signs Temp 97.8 F 09/20/22 08:00 Pulse 85 09/20/22 08:00 Resp 19 09/20/22 08:00 BP 167/88 H 09/20/22 08:00 Pulse Ox 92 09/20/22 08:00 O2 Del Method 09/20/22 08:00 O2 Flow Rate 2 09/19/22 02:02 BMI result Body Mass Index 22.9 Constitutional - Awake and Alert, No apparent distress Eyes - PERRLA, EOMI Cardiovascular - S1S2, RRR, No edema Respiratory - Normal lung expansion, Normal respiratory effort, No respiratory distress, CTA bilaterally Gastrointestinal - NT / ND; +BS; No rebound or guarding. MIdline post-op bandage in place without drainage Extremities - no calf tenderness bilaterally, no swelling Skin - Warm/Dry Neurological - Alert & oriented x3 Psychological - Appropriate affect Objective Data Active Medications Atenolol (Atenolol 50 Mg Tablet) 50 mg PO DAILY [facility]; Protocol Last Admin: 09/20/22 09:01 Dose: 50 mg Documented By: KALYN Calcium Carbonate (Calcium Carbonate 750 Mg Tab.Chew) 750 mg PO Q4H PRN PRN Reason: Heartburn Last Admin: 09/19/22 18:27 Dose: 750 mg Documented By: KALYN Docusate Sodium (Docusate Sodium 100 Mg Capsule) 100 mg PO BID PRN PRN Reason: Constipation Last Admin: 09/20/22 09:45 Dose: 100 mg Documented By: KALYN Fentanyl (Fentanyl Citrate/Pf 100 Mcg/2 Ml Vial) 25 mcg IVPUSH Q5M PRN; Protocol PRN Reason: Pain, Moderate (Pain Scale 4-6 Last Admin: 09/18/22 11:29 Dose: 25 mcg Documented By: ROBYN Heparin Sodium (Porcine) (Heparin Sodium,Porcine 5,000 Unit/Ml Vial) 5,000 unit SUBCUT Q8H [facility] Last Admin: 09/20/22 09:02 Dose: 5,000 unit Documented By: KALYN Hydromorphone HCl (Hydromorphone Hcl 0.5 Mg/0.5 Ml Syringe) 0.25 mg IVPUSH Q5M PRN; Protocol PRN Reason: Pain, Severe (Pain Scale 7-10) Last Admin: 09/18/22 12:30 Dose: 0.25 mg Documented By: ROBYN Lactated Ringer's (Lr) 1,000 mls @ 80 mls/hr IVCONT .[id number] [facility] Last Admin: 09/20/22 02:59 Dose: 80 mls/hr Documented By: DARRON Acetaminophen (Ofirmev) 1,000 mg in 100 mls @ 400 mls/hr IV Q6H [facility] Last Infusion: 09/20/22 05:26 Dose: 0 mls/hr Documented By: DARRON Lisinopril (Lisinopril 20 Mg Tablet) 20 mg PO BID [facility]; Protocol Last Admin: 09/20/22 09:02 Dose: 20 mg Documented By: KALYN Morphine Sulfate (Morphine Sulfate 4 Mg/Ml Cartridge) 4 mg IVPUSH Q4H PRN; Protocol PRN Reason: Pain, Severe (Pain Scale 7-10) Last Admin: 09/19/22 22:55 Dose: 4 mg Documented By: DARRON Nicotine Polacrilex (Nicotine Polacrilex 2 Mg Gum) 2 mg BUCCAL Q2H PRN PRN Reason: Nicotine Cravings Nifedipine (Nifedipine Er 60 Mg Tab.Er.24) 60 mg PO DAILY [facility] Last Admin: 09/20/22 09:01 Dose: 60 mg Documented By: KALYN Non-Formulary Medication (Oxaprozin) 600 mg PO BEDTIME [facility] Omeprazole (Omeprazole 20 Mg Capsule.Dr) 20 mg PO DAILY@0630 [facility] Last Admin: 09/20/22 09:01 Dose: 20 mg Documented By: KALYN Ondansetron HCl (Ondansetron Hcl 4 Mg/2 Ml Vial) 4 mg IVPUSH Q6H PRN PRN Reason: Nausea and Vomiting Last Admin: 09/19/22 20:38 Dose: 4 mg Documented By: DARRON Oxycodone HCl (Oxycodone Hcl Immed Release 5 Mg Tablet) 5 mg PO Q4H PRN PRN Reason: Pain, Moderate (Pain Scale 4-6 Oxycodone HCl (Oxycodone Hcl Immed Release 5 Mg Tablet) 10 mg PO Q4H PRN PRN Reason: Pain, Severe (Pain Scale 7-10) Sodium Chloride (0.9 % Sodium Chloride Flush 3 Ml Syringe) 3 ml IVFLUSH QSHIFT SERGE Last Admin: 09/20/22 07:38 Dose: Not Given Documented By: KALYN Non-Admin Reason: IV Running Labs 09/20/22 05:58 09/20/22 05:58 Labs: Laboratory Results - last 24 hr 09/19/22 09/20/22 09/20/22 11:08 05:58 05:58 MCV 92.4 MCH 32.3 MCHC 34.9 RDW 12.8 Plt Count 345 MPV 10.0 Immature Gran % (Auto) 0.6 H Neut % (Auto) 87.6 H Lymph % (Auto) 3.8 L [place] % (Auto) 7.7 Eos % (Auto) 0.1 Baso % (Auto) 0.2 Lymph # (Auto) 0.6 L [place] # (Auto) 1.3 H Eos # (Auto) 0.0 Baso # (Auto) 0.0 Abs Immat Gran (auto) 0.10 H Absolute Neuts (auto) 14.7 H Absolute Nucleated RBC 0.000 Nucleated RBC % (auto) 0.0 Anion Gap 16 Estim Creat Clear Calc 88.1 Estimated GFR > 60 Random Glucose 135 H Calcium 8.6 Troponin I High Sens 6.0 Assessment and Plan (1) Cecal polyp: Status: Acute (2) Hypertensive urgency: Status: Acute Plan 72 year old male with history of htn, cecal polyp, BPH,? h/o prostate cancer with gold seed implant and ERBT, who is a current 6 cigarette per day smoker, admitted to general surgery for hand assisted laparoscopic right colon resection for management of tubular adenoma pod 1 with consult placed to medicine for management of hypertension and medical management. # cecal polyp/tubular adenoma s/p hand assisted laparoscopic right-sided hemicolectomy -pod 1 -plan pain management per General surgery -Reporting intermittent chills, no rigors Pt afebrile #Hypertensive urgency- resolved -BP 207/102 yesterday, asymptomatic. Improved with IV labetolol -Lisinopril increased to 20mg BID. Continue atenolol, nifedipine -monitor BP #Hyponatremia- mild 133 -DC IV LR as pt is tolerating PO. Discussed with surgery -Follow lytes # GERD -Cardiac work up negative yesterday -Initiate omprazole 20mg daily. Tums prn # BPH, history of prostate cancer -continue oxaprozin #Cigarette smoker -currently smoking 6 cigarettes daily -cessation counseling -necrotic gum p.r.n. DVT prophylaxis and dispo per surgery Time Spent With Patient Time: Total time managing care of this patient today ____ minutes. Quality Stroke Does the patient have a stroke diagnosis?: No VTE Prior VTE?: No VTE Risk Level:: Medical - moderate - high VTE Device Contraindication: N/A - Device Ordered VTE Drug Contraindication: N/A - Med Ordered
--- NOTE | 2022-09-20 11:01 | P.PNGS_ITS ---
Subjective Subjective Date of Service: 09/20/22 Patient reports: feels better, tolerating liquids well, flatus and no bowel movement Interval history: The patient is postop day 2 from a right hemicolectomy in seen in coverage for Dr. Hill Patient reports he has been passing gas and tolerating liquids. He is moving around enough that he would like his Molina catheter removed. He otherwise denies any diaphoresis, chest pain, symptoms is he experienced yesterday but he has not had a bowel movement yet. Physical Exam Vital Signs: Vital Signs: Last Vital Signs Temp 97.8 F 09/20/22 08:00 Pulse 85 09/20/22 08:00 Resp 19 09/20/22 08:00 BP 167/88 H 09/20/22 08:00 Pulse Ox 92 09/20/22 08:00 O2 Del Method 09/20/22 08:00 O2 Flow Rate 2 09/19/22 02:02 BMI result Body Mass Index 22.9 On exam he is anicteric and nontoxic He is in no respiratory distress He is not diaphoretic His abdominal dressings are intact and he has appropriate tenderness with no peritoneal sign. Objective Data Active Medications Atenolol (Atenolol 50 Mg Tablet) 50 mg PO DAILY [facility]; Protocol Last Admin: 09/20/22 09:01 Dose: 50 mg Documented By: KALYN Calcium Carbonate (Calcium Carbonate 750 Mg Tab.Chew) 750 mg PO Q4H PRN PRN Reason: Heartburn Last Admin: 09/19/22 18:27 Dose: 750 mg Documented By: KALYN Docusate Sodium (Docusate Sodium 100 Mg Capsule) 100 mg PO BID PRN PRN Reason: Constipation Last Admin: 09/20/22 09:45 Dose: 100 mg Documented By: KALYN Fentanyl (Fentanyl Citrate/Pf 100 Mcg/2 Ml Vial) 25 mcg IVPUSH Q5M PRN; Protocol PRN Reason: Pain, Moderate (Pain Scale 4-6 Last Admin: 09/18/22 11:29 Dose: 25 mcg Documented By: ROBYN Heparin Sodium (Porcine) (Heparin Sodium,Porcine 5,000 Unit/Ml Vial) 5,000 unit SUBCUT Q8H [facility] Last Admin: 09/20/22 09:02 Dose: 5,000 unit Documented By: KALYN Hydromorphone HCl (Hydromorphone Hcl 0.5 Mg/0.5 Ml Syringe) 0.25 mg IVPUSH Q5M PRN; Protocol PRN Reason: Pain, Severe (Pain Scale 7-10) Last Admin: 09/18/22 12:30 Dose: 0.25 mg Documented By: ROBYN Acetaminophen (Ofirmev) 1,000 mg in 100 mls @ 400 mls/hr IV Q6H [facility] Last Infusion: 09/20/22 05:26 Dose: 0 mls/hr Documented By: DARRON Lisinopril (Lisinopril 20 Mg Tablet) 20 mg PO BID [facility]; Protocol Last Admin: 09/20/22 09:02 Dose: 20 mg Documented By: KALYN Morphine Sulfate (Morphine Sulfate 4 Mg/Ml Cartridge) 4 mg IVPUSH Q4H PRN; Protocol PRN Reason: Pain, Severe (Pain Scale 7-10) Last Admin: 09/19/22 22:55 Dose: 4 mg Documented By: DARRON Nicotine Polacrilex (Nicotine Polacrilex 2 Mg Gum) 2 mg BUCCAL Q2H PRN PRN Reason: Nicotine Cravings Nifedipine (Nifedipine Er 60 Mg Tab.Er.24) 60 mg PO DAILY [facility] Last Admin: 09/20/22 09:01 Dose: 60 mg Documented By: KALYN Non-Formulary Medication (Oxaprozin) 600 mg PO BEDTIME [facility] Omeprazole (Omeprazole 20 Mg Capsule.Dr) 20 mg PO DAILY@0630 [facility] Last Admin: 09/20/22 09:01 Dose: 20 mg Documented By: KALYN Ondansetron HCl (Ondansetron Hcl 4 Mg/2 Ml Vial) 4 mg IVPUSH Q6H PRN PRN Reason: Nausea and Vomiting Last Admin: 09/19/22 20:38 Dose: 4 mg Documented By: DARRON Oxycodone HCl (Oxycodone Hcl Immed Release 5 Mg Tablet) 5 mg PO Q4H PRN PRN Reason: Pain, Moderate (Pain Scale 4-6 Oxycodone HCl (Oxycodone Hcl Immed Release 5 Mg Tablet) 10 mg PO Q4H PRN PRN Reason: Pain, Severe (Pain Scale 7-10) Sodium Chloride (0.9 % Sodium Chloride Flush 3 Ml Syringe) 3 ml IVFLUSH QSHIFT SERGE Last Admin: 09/20/22 07:38 Dose: Not Given Documented By: KALYN Non-Admin Reason: IV Running Labs 09/20/22 05:58 09/20/22 05:58 Labs: Laboratory Results - last 24 hr 09/19/22 09/20/22 09/20/22 11:08 05:58 05:58 MCV 92.4 MCH 32.3 MCHC 34.9 RDW 12.8 Plt Count 345 MPV 10.0 Immature Gran % (Auto) 0.6 H Neut % (Auto) 87.6 H Lymph % (Auto) 3.8 L [place] % (Auto) 7.7 Eos % (Auto) 0.1 Baso % (Auto) 0.2 Lymph # (Auto) 0.6 L [place] # (Auto) 1.3 H Eos # (Auto) 0.0 Baso # (Auto) 0.0 Abs Immat Gran (auto) 0.10 H Absolute Neuts (auto) 14.7 H Absolute Nucleated RBC 0.000 Nucleated RBC % (auto) 0.0 Anion Gap 16 Estim Creat Clear Calc 88.1 Estimated GFR > 60 Random Glucose 135 H Calcium 8.6 Troponin I High Sens 6.0 Procedures Date of Service Date of Service: 09/20/22 Progress Note: A&P Assessment and plan (1) Cecal polyp: Status: Acute Plan Okay to his DC LR Advanced to full liquid diet Remove Molina Await stool/better bowel function. Dr. Hill to resume care September 21 Time Spent With Patient Time: Total time managing care of this patient today ____ minutes. Quality Stroke Does the patient have a stroke diagnosis?: No VTE Prior VTE?: No VTE Risk Level:: Medical - moderate - high VTE Device Contraindication: N/A - Device Ordered VTE Drug Contraindication: N/A - Med Ordered
--- NOTE | 2022-09-20 11:38 | PC.NURSE ---
Molina catheter removed at 1130, patient DTV by 1730
[2022-09-20 16:00] VITALS: BP 184/82; PULSE 82; RESP 16; TEMP 36.8; O2SAT 98
[2022-09-20] MEDS: 0.9 % Sodium Chloride Flush 3 ML SYRINGE IVFLUSH ×2 (17:01→22:55)
[2022-09-20 19:28] VITALS: BP 162/80; PULSE 82; RESP 16; TEMP 36.4; O2SAT 97
[2022-09-21] MEDS: Heparin Sodium,Porcine 5,000 UNIT/ML VIAL 5000 UNIT SUBCUT ×2 (03:06→11:28)
[2022-09-21 03:55] VITALS: BP 140/80; PULSE 82; RESP 18; TEMP 36; O2SAT 97
[2022-09-21] MEDS: Acetaminophen 1,000 MG/100 ML PIGGYBACK 400 MG IV ×2 (05:20→11:51)
[2022-09-21] MEDS: Omeprazole 20 MG CAPSULE.DR PO (05:38)
[2022-09-21 06:41] LABS: Basophils Percent Auto 0.1 % (0-2); Hematocrit 27.9 % (42.0-52.0); Hemoglobin 9.7 g/dl (14.0-18.0); Imm Gran Abs Auto 0.04 X10*3/uL (0.00-0.03); Imm Gran Pct Auto 0.3 % (0.0-0.4); Lymphocytes Absolute Auto 0.2 X10*3/uL (1.2-4.9); MANUAL DIFF FLAG SCAN; Mean Corpuscular HGB Conc 34.8 g/dl (31.0-36.0); Mean Corpuscular Hemoglobin 32.2 pg (27.0-33.0); Mean Corpuscular Volume 92.7 fL (80.0-98.0); Mean Platelet Volume 10.1 fL (9.4-12.4); Monocytes Absolute Auto 0.7 X10*3/uL (0.1-1.2); Monocytes Percent Auto 5.8 % (2-11); Neutrophils Absolute Auto 10.8 x10*3/uL (2.0-8.3); Neutrophils Percent Auto 91.8 % (45-73); Platelet Count 313 X10*3/uL (160-400); Red Blood Count 3.01 X10*6/uL (4.60-5.80); Red Cell Distribution Width 12.9 % (11.0-16.0); SCAN SMEAR FLAG 1; White Blood Count 11.8 X10*3/uL (4.8-10.8)
[2022-09-21 06:59] VITALS: BP 158/72; PULSE 81; RESP 16; TEMP 36.1; O2SAT 93
[2022-09-21 07:01] LABS: Anion Gap 18 (12-20); Blood Urea Nitrogen 29 mg/dL (9-16); Carbon Dioxide 27 mmol/L (22-29); Chloride 93 mmol/L (96-108); Creatinine Clr Calc Pharmacy 76.6; Estimated Glomerular Filt Rate > 60; Glucose Random 132 mg/dL (60-115); Potassium 3.9 mmol/L (3.3-5.1); Sodium 134 mmol/L (135-145)
[2022-09-21] MEDS: lisinopriL 20 MG TABLET PO (07:45)
[2022-09-21] MEDS: NIFEdipine ER 60 MG TAB.ER.24 PO (07:45)
[2022-09-21] MEDS: 0.9 % Sodium Chloride Flush 3 ML SYRINGE IVFLUSH (07:46)
[2022-09-21] MEDS: hydrALAZINE HCl 10 MG TABLET PO (07:46)
[2022-09-21] MEDS: atenoloL 50 MG TABLET PO (07:46)
--- NOTE | 2022-09-21 08:01 | PM.PNGS ---
Subjective Subjective Date of Service: 09/22/22 Interval history: continues to feel well good flatus tolerating full liq has been ambulating wants to go home Physical Exam Vital Signs: Vital Signs: Last Vital Signs Temp 97 F 09/21/22 06:59 Pulse 81 09/21/22 06:59 Resp 16 09/21/22 06:59 BP 158/72 H 09/21/22 06:59 Pulse Ox 93 09/21/22 06:59 O2 Del Method 09/21/22 06:59 O2 Flow Rate 2 09/21/22 06:59 BMI result Body Mass Index 22.9 Const: General: comfortable and no acute distress Resp: Effort & Inspection: normal respiratory effort Cardio: Rate: regular rate GI: Other: incision clean and dry Palpation (GI): Soft to palpation, not firm, nontender and Guarding due to palpation present (GI) Objective Data Active Medications Atenolol (Atenolol 50 Mg Tablet) 50 mg PO DAILY [facility]; Protocol Last Admin: 09/21/22 07:46 Dose: 50 mg Documented By: JOSE RAMON Calcium Carbonate (Calcium Carbonate 750 Mg Tab.Chew) 750 mg PO Q4H PRN PRN Reason: Heartburn Last Admin: 09/19/22 18:27 Dose: 750 mg Documented By: KALYN Docusate Sodium (Docusate Sodium 100 Mg Capsule) 100 mg PO BID PRN PRN Reason: Constipation Last Admin: 09/20/22 17:07 Dose: 100 mg Documented By: KALYN Fentanyl (Fentanyl Citrate/Pf 100 Mcg/2 Ml Vial) 25 mcg IVPUSH Q5M PRN; Protocol PRN Reason: Pain, Moderate (Pain Scale 4-6 Last Admin: 09/18/22 11:29 Dose: 25 mcg Documented By: ROBYN Heparin Sodium (Porcine) (Heparin Sodium,Porcine 5,000 Unit/Ml Vial) 5,000 unit SUBCUT Q8H [facility] Last Admin: 09/21/22 03:06 Dose: 5,000 unit Documented By: DARORN Hydralazine HCl (Hydralazine Hcl 10 Mg Tablet) 10 mg PO TID [facility]; Protocol Last Admin: 09/21/22 07:46 Dose: 10 mg Documented By: JOSE RAMON Hydromorphone HCl (Hydromorphone Hcl 0.5 Mg/0.5 Ml Syringe) 0.25 mg IVPUSH Q5M PRN; Protocol PRN Reason: Pain, Severe (Pain Scale 7-10) Last Admin: 09/18/22 12:30 Dose: 0.25 mg Documented By: ROBYN Acetaminophen ([facility]) 1,000 mg in 100 mls @ 400 mls/hr IV Q6H [facility] Last Infusion: 09/21/22 05:35 Dose: 0 mls/hr Documented By: DARRON Lisinopril (Lisinopril 20 Mg Tablet) 20 mg PO BID [facility]; Protocol Last Admin: 09/21/22 07:45 Dose: 20 mg Documented By: JOSE RAMON Morphine Sulfate (Morphine Sulfate 4 Mg/Ml Cartridge) 4 mg IVPUSH Q4H PRN; Protocol PRN Reason: Pain, Severe (Pain Scale 7-10) Last Admin: 09/19/22 22:55 Dose: 4 mg Documented By: DARRON Nicotine Polacrilex (Nicotine Polacrilex 2 Mg Gum) 2 mg BUCCAL Q2H PRN PRN Reason: Nicotine Cravings Nifedipine (Nifedipine Er 60 Mg Tab.Er.24) 60 mg PO DAILY [facility] Last Admin: 09/21/22 07:45 Dose: 60 mg Documented By: JOSE RAMON Non-Formulary Medication (Oxaprozin) 600 mg PO BEDTIME [facility] Omeprazole (Omeprazole 20 Mg Capsule.Dr) 20 mg PO DAILY@0630 [facility] Last Admin: 09/21/22 05:38 Dose: 20 mg Documented By: DARRON Ondansetron HCl (Ondansetron Hcl 4 Mg/2 Ml Vial) 4 mg IVPUSH Q6H PRN PRN Reason: Nausea and Vomiting Last Admin: 09/19/22 20:38 Dose: 4 mg Documented By: DARRON Oxycodone HCl (Oxycodone Hcl Immed Release 5 Mg Tablet) 5 mg PO Q4H PRN PRN Reason: Pain, Moderate (Pain Scale 4-6 Oxycodone HCl (Oxycodone Hcl Immed Release 5 Mg Tablet) 10 mg PO Q4H PRN PRN Reason: Pain, Severe (Pain Scale 7-10) Sodium Chloride (0.9 % Sodium Chloride Flush 3 Ml Syringe) 3 ml IVFLUSH QSHIFT [facility] Last Admin: 09/21/22 07:46 Dose: 3 ml Documented By: JOSE RAMON Labs 09/20/22 05:58 09/21/22 05:48 Labs: Laboratory Results - last 24 hr 09/20/22 09/21/22 05:58 05:48 Anion Gap 16 18 Estim Creat Clear Calc 88.1 76.6 Estimated GFR > 60 > 60 Random Glucose 135 H 132 H Calcium 8.6 9.0 Procedures Date of Service Date of Service: 09/21/22 Progress Note: A&P Assessment and plan (1) Cecal polyp: Status: Acute Assessment and Plan: s/p right colon resection looks well passing flatus abd soft and benign advance diet possible dc home later today Time Spent With Patient Time: Total time managing care of this patient today ____ minutes. Quality Stroke Does the patient have a stroke diagnosis?: No VTE Prior VTE?: No VTE Risk Level:: Medical - moderate - high VTE Device Contraindication: N/A - Device Ordered VTE Drug Contraindication: N/A - Med Ordered
[2022-09-21 08:27] LABS: SLIDE REVIEW VERIFIED
--- NOTE | 2022-09-21 09:23 | P.PNIM_ITS ---
Subjective Subjective Date of Service: 09/21/22 Interval History: Seen in follow up right sided hemicolectomy Interval history: Still intermittently hypertensive, improved with increased d ose lisinopril. No complaints Review of Systems Review of Systems: Yes all other systems are reviewed and are negative Physical Exam Vital Signs: Vital Signs: Last Vital Signs Temp 97 F 09/21/22 06:59 Pulse 81 09/21/22 06:59 Resp 16 09/21/22 06:59 BP 158/72 H 09/21/22 06:59 Pulse Ox 93 09/21/22 06:59 O2 Del Method 09/21/22 06:59 O2 Flow Rate 2 09/21/22 06:59 BMI result Body Mass Index 22.9 Constitutional - Awake and Alert, No apparent distress Eyes - PERRLA, EOMI Cardiovascular - S1S2, RRR, No edema Respiratory - Normal lung expansion, Normal respiratory effort, No respiratory distress, CTA bilaterally Extremities - no calf tenderness bilaterally, no swelling Skin - Warm/Dry Neurological - Alert & oriented x3 Psychological - Appropriate affect Objective Data Active Medications Atenolol (Atenolol 50 Mg Tablet) 50 mg PO DAILY [facility]; Protocol Last Admin: 09/21/22 07:46 Dose: 50 mg Documented By: JOSE RAMON Calcium Carbonate (Calcium Carbonate 750 Mg Tab.Chew) 750 mg PO Q4H PRN PRN Reason: Heartburn Last Admin: 09/19/22 18:27 Dose: 750 mg Documented By: KALYN Docusate Sodium (Docusate Sodium 100 Mg Capsule) 100 mg PO BID PRN PRN Reason: Constipation Last Admin: 09/20/22 17:07 Dose: 100 mg Documented By: KALYN Fentanyl (Fentanyl Citrate/Pf 100 Mcg/2 Ml Vial) 25 mcg IVPUSH Q5M PRN; Protocol PRN Reason: Pain, Moderate (Pain Scale 4-6 Last Admin: 09/18/22 11:29 Dose: 25 mcg Documented By: ROBYN Heparin Sodium (Porcine) (Heparin Sodium,Porcine 5,000 Unit/Ml Vial) 5,000 unit SUBCUT Q8H [facility] Last Admin: 09/21/22 03:06 Dose: 5,000 unit Documented By: ALEJANDRORISNila Hydralazine HCl (Hydralazine Hcl 10 Mg Tablet) 10 mg PO TID [facility]; Protocol Last Admin: 09/21/22 07:46 Dose: 10 mg Documented By: JOSE RAMON Hydromorphone HCl (Hydromorphone Hcl 0.5 Mg/0.5 Ml Syringe) 0.25 mg IVPUSH Q5M PRN; Protocol PRN Reason: Pain, Severe (Pain Scale 7-10) Last Admin: 09/18/22 12:30 Dose: 0.25 mg Documented By: ROBYN Acetaminophen ([facility]) 1,000 mg in 100 mls @ 400 mls/hr IV Q6H [facility] Last Infusion: 09/21/22 05:35 Dose: 0 mls/hr Documented By: DARRON Lisinopril (Lisinopril 20 Mg Tablet) 20 mg PO BID [facility]; Protocol Last Admin: 09/21/22 07:45 Dose: 20 mg Documented By: JOSE RAMON Morphine Sulfate (Morphine Sulfate 4 Mg/Ml Cartridge) 4 mg IVPUSH Q4H PRN; Protocol PRN Reason: Pain, Severe (Pain Scale 7-10) Last Admin: 09/19/22 22:55 Dose: 4 mg Documented By: DARRON Nicotine Polacrilex (Nicotine Polacrilex 2 Mg Gum) 2 mg BUCCAL Q2H PRN PRN Reason: Nicotine Cravings Nifedipine (Nifedipine Er 60 Mg Tab.Er.24) 60 mg PO DAILY [facility] Last Admin: 09/21/22 07:45 Dose: 60 mg Documented By: JOSE RAMON Non-Formulary Medication (Oxaprozin) 600 mg PO BEDTIME [facility] Omeprazole (Omeprazole 20 Mg Capsule.Dr) 20 mg PO DAILY@0630 [facility] Last Admin: 09/21/22 05:38 Dose: 20 mg Documented By: DARRON Ondansetron HCl (Ondansetron Hcl 4 Mg/2 Ml Vial) 4 mg IVPUSH Q6H PRN PRN Reason: Nausea and Vomiting Last Admin: 09/19/22 20:38 Dose: 4 mg Documented By: DARRON Oxycodone HCl (Oxycodone Hcl Immed Release 5 Mg Tablet) 5 mg PO Q4H PRN PRN Reason: Pain, Moderate (Pain Scale 4-6 Oxycodone HCl (Oxycodone Hcl Immed Release 5 Mg Tablet) 10 mg PO Q4H PRN PRN Reason: Pain, Severe (Pain Scale 7-10) Sodium Chloride (0.9 % Sodium Chloride Flush 3 Ml Syringe) 3 ml IVFLUSH QSHIFT [facility] Last Admin: 09/21/22 07:46 Dose: 3 ml Documented By: JOSE RAMON Labs 09/21/22 05:48 09/21/22 05:48 Labs: Laboratory Results - last 24 hr 09/21/22 09/21/22 05:48 05:48 MCV 92.7 MCH 32.2 MCHC 34.8 RDW 12.9 Plt Count 313 MPV 10.1 Immature Gran % (Auto) 0.3 Neut % (Auto) 91.8 H Lymph % (Auto) 2.0 L [place] % (Auto) 5.8 Eos % (Auto) 0.0 Baso % (Auto) 0.1 Lymph # (Auto) 0.2 L [place] # (Auto) 0.7 Eos # (Auto) 0.0 Baso # (Auto) 0.0 Abs Immat Gran (auto) 0.04 H Absolute Neuts (auto) 10.8 H Absolute Nucleated RBC 0.000 Nucleated RBC % (auto) 0.0 Smear Tech's Comments VERIFIED Anion Gap 18 Estim Creat Clear Calc 76.6 Estimated GFR > 60 Random Glucose 132 H Calcium 9.0 Assessment and Plan (1) Cecal polyp: Status: Acute (2) Hypertensive urgency: Status: Acute Plan 72 year old male with history of htn, cecal polyp, BPH,? h/o prostate cancer with gold seed implant and ERBT, who is a current 6 cigarette per day smoker, admitted to general surgery for hand assisted laparoscopic right colon resection for management of tubular adenoma pod 1 with consult placed to medicine for management of hypertension and medical management. # cecal polyp/tubular adenoma s/p hand assisted laparoscopic right-sided hemicolectomy -pod 1 -plan pain management per General surgery -Reporting intermittent chills, no rigors Pt afebrile #Hypertensive urgency- resolved, but continues with intermittent hypertension -Given 1 dose hydralazine 10mg PO this am. Should continue increase dose lisinopril 20mg BID on discharge along with atenolol and nifedipine. #Hyponatremia- mild, improved to 134 # GERD -Continue omprazole 20mg daily. Tums prn # BPH, history of prostate cancer -continue oxaprozin #Cigarette smoker -currently smoking 6 cigarettes daily -cessation counseling -nicotine gum p.r.n. DVT prophylaxis and dispo per surgery Time Spent With Patient Time: Total time managing care of this patient today ____ minutes. Quality Stroke Does the patient have a stroke diagnosis?: No VTE Prior VTE?: No VTE Risk Level:: Medical - moderate - high VTE Device Contraindication: N/A - Device Ordered VTE Drug Contraindication: N/A - Med Ordered
--- NOTE | 2022-09-21 13:04 | PM.EVENT ---
Event Note Date of Service: 09/21/22 Event Note: Seen on early afternoon rounds Tolerating regular diet well Says he has been passing a lot of flatus Denies BMs but states that he usually does not have bowel movements at home for 2-3 days or more His abdominal exam remains very benign He looks well clinically and wants to go home Will therefore discharged home on Colace Given discharge instructions, follow-up in the office Time Spent With Patient Time: Total time managing care of this patient today ____ minutes.
--- NOTE | 2022-09-21 13:20 | MHC.CM.PN ---
PT MEDICALLY CLEARED FOR D/C HOME SELF-CARE, PT'S FOR TRANSPORT
--- NOTE | 2022-09-21 13:34 | P.DS_ITS ---
DS: Providers Provider Date of Service: 09/21/22 Date of admission: 09/18/22 07:27 Date of discharge: 09/21/22 Primary care physician: Mikel Urias MD Attending physician on admission: Erich Hill Consults: 09/18/22 14:21 Consult to Hospitalist Routine Consulting Provider: Hospitalist Reason For Exam: hypertension 09/19/22 10:50 Consult to Hospitalist Stat Consulting Provider: Hospitalist Reason For Exam: diaphoresis, POD 1 s/p right hemicolectomy Attending physician on discharge: Erich Hill DS: Diagnosis Discharge Diagnosis (1) Cecal polyp: Status: Acute (2) Hypertensive urgency: Status: Acute DS: Summary Hospital Course Hospital Course: HPI AT ADMISSION: The patient is a 72-year-old male who had undergone a colonoscopy last year showing a tubular adenoma in the appendiceal orifice.? The international coordinator had felt that this could not be resected endoscopically.? He was therefore referred to me for resection.? He presents now for the procedure. ? HOSPITAL COURSE: On 09/18/22, a hand assisted laparoscopic right colon resection was performed by Dr. Hill without complication. The patient tolerated the procedure well and was admitted for observation post operatively. Hospitalist consult was obtained for management of his hypertension. On POD #1, he developed epigastric pain and heartburn. He was also diaphoretic with SBP >200 which improved with IV labetolol. EKG and troponins were obtained which were WNL. He felt improved with tums. He was ambulated. He began to pass flatus. His altamirano catheter was removed on POD #2. He was tolerating clear liquids and advanced to full liquids. This was advanced to low residue diet the following day. On the day of discharge, he was tolerating a solid diet and passing continuous flatus. He had good pain control on PO analgesics. His abd remained benign with clean incisions. He felt ready for discharge to home. He was discharged to home on 09/21/22 in stable condition. He was discharged on colace 100mg BID as he had not had a bowel movement yet. He is to follow up in the office with Dr. Hill in 2 weeks. His SBP remained elevated despite resumption of all his home antihypertensives. His lisinopril was increased to 20mg BID. He is to follow up with his PCP regarding further management. Status at Discharge Functional status at discharge: independent ambulation Overall status at discharge: patient is progressing back to baseline Time Spent with Patient Time attestation: Total time managing care of this patient today ____ minutes. Discharge coordination time: Greater than 30 minutes Quality: Safe Use of Opioids Does Pt have an Active Cancer Diagnosis on the Problem List?: No Quality: Stroke Does the patient have a stroke diagnosis?: No Physical Exam Vital Signs: Vital Signs: Last Vital Signs Temp 97 F 09/21/22 06:59 Pulse 81 09/21/22 06:59 Resp 16 09/21/22 06:59 BP 158/72 H 09/21/22 06:59 Pulse Ox 93 09/21/22 06:59 O2 Del Method 09/21/22 06:59 O2 Flow Rate 2 09/21/22 06:59 BMI result Body Mass Index 22.9 Const: General: comfortable, no acute distress and alert Orientation/consciousness: patient oriented x3 Resp: Effort & Inspection: normal respiratory effort GI: Inspection: No distended and Yes incision (clean, well approximated) Palpation (GI): Soft to palpation, Tenderness to palpation present (GI) (mild, incisional), no guarding and not rigid Percussion: Yes normal to percussion Skin: General skin exam: no rashes or lesions noted Neuro: General: patient oriented x3 DS: Data Data Completed and Pending Pending studies at discharge: Pending at discharge 09/18/22 10:05 Surgical [PTH] Urgent Labs on day of discharge: Laboratory Results - last 24 hr 09/21/22 09/21/22 05:48 05:48 WBC 11.8 H RBC 3.01 L Hgb 9.7 L Hct 27.9 L MCV 92.7 MCH 32.2 MCHC 34.8 RDW 12.9 Plt Count 313 MPV 10.1 Immature Gran % (Auto) 0.3 Neut % (Auto) 91.8 H Lymph % (Auto) 2.0 L [place] % (Auto) 5.8 Eos % (Auto) 0.0 Baso % (Auto) 0.1 Lymph # (Auto) 0.2 L [place] # (Auto) 0.7 Eos # (Auto) 0.0 Baso # (Auto) 0.0 Abs Immat Gran (auto) 0.04 H Absolute Neuts (auto) 10.8 H Absolute Nucleated RBC 0.000 Nucleated RBC % (auto) 0.0 Smear Tech's Comments VERIFIED Sodium 134 L Potassium 3.9 Chloride 93 L Carbon Dioxide 27 Anion Gap 18 BUN 29 H Creatinine 0.92 Estim Creat Clear Calc 76.6 Estimated GFR > 60 Random Glucose 132 H Calcium 9.0 Discharge Plan Discharge Anticipated Discharge Date/Time: 09/21/22 15:33 Patient Disposition: Home, Self-Care Discharge Diagnosis: cecal polyp s/p MANJU right colectomy Referrals: Erich Hill MD [Physician] - 1 Week Mikel Urias MD [Primary Care Provider] - 1 Week Discharge Medications: New oxycodone 5 mg tablet 5 mg PO Q4H PRN (Reason: pain) Qty: 26 0RF Rx Instructions: Partial Fill upon patient request. lisinopril 20 mg tablet 20 mg PO BID Qty: 60 0RF docusate sodium [Colace] 100 mg capsule 100 mg PO BID Qty: 60 2RF Continued oxaprozin 600 mg tablet 600 mg PO BEDTIME Rx Instructions: administer with food or milk atenolol 50 mg tablet 50 mg PO QAM nifedipine 60 mg tablet extended release 60 mg PO QAM Discontinued lisinopril 10 mg tablet 10 mg PO BID Discharge Orders: Discharge Order (Routine); Ordered 09/21/22 Ordered By: Erich Hill Diet: low residue diet Activity on Discharge: No heavy lifting Stand Alone Forms: Patient Portal Discharge page Activity Restrictions/Additional Instructions: If the incision area is tender, you may apply an ice pack for short intervals (No more than 20 minutes on, followed by at least 20 minutes off). Do not apply heat. Do not use creams, lotions, or topical antibiotics unless instructed to do so by your surgeon. These can cause infection or allergic reaction. Ok to shower. You have susana closing your incision and these will be removed approximately 10-14 days after surgery. NO HEAVY LIFTING (>10lbs) or strenuous activity. Follow up in office with Dr. Hill. ([phone]) F/u in office with your PCP regarding your blood pressure. Call Your Doctor If: -Your temperature exceeds 101.5? F -You experience excessive pain or swelling -You have an unexpected reaction to medication -You have excessive bleeding -You experience continued vomiting/nausea -Your incision begins to separate -Your incision shows signs of infection such as increased redness, swelling, excessive pain, drainage (light blood or clear fluid is normal) or heat Care Plan Goals: Return to baseline health and gradual return to activity following recovery period. Health Concerns: cecal polyp hypertension, hypertensive urgency Plan of Treatment: s/p MANJU right colectomy pain control f/u in office Assessment: Doing well post op Discharge Date/Time: 09/21/22 13:22
== END 2022-09-21 13:22 | disposition home or self-care (01) | DRG 330 ==
LOC: HO.SSSA 07:38 → HO.S3 13:28
PROVIDERS: Anesthesiology; Nurse Practitioner; Surgery; Admitting Provider Surgery; PCP Internal Medicine; Visit Provider Surgery
PROC: 0DTE0ZZ Resection of Large Intestine, Open Approach (ICD-10-PCS; principal; 2022-09-18 09:10)
DX: D12.0 Benign neoplasm of cecum (principal); E87.1 Hypo-osmolality and hyponatremia; I10 Essential (primary) hypertension; N40.1 Benign prostatic hyperplasia with lower urinary tract symptoms; I16.0 Hypertensive urgency; Z85.46 Personal history of malignant neoplasm of prostate; K21.9 Gastro-esophageal reflux disease without esophagitis; F17.210 Nicotine dependence, cigarettes, uncomplicated; Z20.822 Contact with and (suspected) exposure to COVID-19; Z71.6 Tobacco abuse counseling; Z79.899 Other long term (current) drug therapy
CPT/HCPCS: 36415; 80048; 84484; 85025; 85027; 86850; 86900; 86901; 87635; 88309; 93005; C1758; J0131; J1100; J1170; J1643; J2250; J2270; J2405; J2795; J3010